=== PATIENT | female | born 1940 | race African-American/Black ===

== ENCOUNTER 2018-11-27 17:18 | Inpatient (IN) | payer MEDICARE, OTHER ==
[~2018-11-27] VITALS: Ht 165.1 cm; Wt 73.5 kg
[2018-11-27] MEDS ORDERED: SODIUM CHLORIDE 0.9% 1,000 ML IV ONE (17:51)
[2018-11-27 18:26] LABS: BASOPHILS % 0.6 % (0.0-2.0); EOSINOPHILS % 0.5 % (0.0-5.0); HEMATOCRIT. 38.1 % (36.0-48.0); HEMOGLOBIN. 12.8 g/dL (12.0-16.0); LYMPHOCYTES % 20.5 % (20.0-50.0); MEAN CORPUSCULAR HEMOGLOBIN 31.6 pg (28.0-32.0); MEAN CORPUSCULAR VOLUME 93.9 fL (81.0-99.0); MEAN PLATELET VOLUME 9.6 fl (7.4-10.4); NEUTROPHILS % 71.4 % (40.0-76.0); PLATELET 198 x1000/uL (130-400); RED BLOOD CELL COUNT 4.05 mill/uL (4.2-5.4); RED CELL DISTRIBUTION WIDTH 16.4 % (11.6-14.6)
[2018-11-27 18:31] LABS: CHLORIDE 102 mEq/L (98-107)
[2018-11-27] MEDS: POTASSIUM CHLORIDE 20MEQ TABLET SR PO NR ×2 (19:38→19:39)
[2018-11-27 23:30] VITALS: BP 171/97
[2018-11-28] VITALS: BP 171/97
[2018-11-28] MEDS ORDERED: HYDRALAZINE 20MG/ML VIAL IV PRN (00:15)
[2018-11-28] MEDS ORDERED: IPRATROPIUM/ALBUTEROL 0.5-3(2.5)MG/3ML NEB HHN PRN (00:15)
[2018-11-28] MEDS ORDERED: EZET10TA13 MT (00:18)
[2018-11-28] MEDS ORDERED: LEVO25TA7 MT (00:18)
[2018-11-28] MEDS ORDERED: HYDR25TA MT (00:18)
[2018-11-28] MEDS ORDERED: KDUR10 MT (00:18)
[2018-11-28] MEDS: AMLODIPINE 5MG TABLET PO SCH ×2 (01:04→09:05)
[2018-11-28 04:00] VITALS: BP 113/68
[2018-11-28] MEDS ORDERED: LEVOTHYROXINE SODIUM 25MCG TABLET PO SCH (06:45)
[2018-11-28 06:58] LABS: BASOPHILS % 0.6 % (0.0-2.0); EOSINOPHILS % 0.5 % (0.0-5.0); HEMATOCRIT. 35.7 % (36.0-48.0); HEMOGLOBIN. 12.3 g/dL (12.0-16.0); LYMPHOCYTES % 32.7 % (20.0-50.0); MEAN CORPUSCULAR HEMOGLOBIN 31.9 pg (28.0-32.0); MEAN CORPUSCULAR VOLUME 92.5 fL (81.0-99.0); MEAN PLATELET VOLUME 9.8 fl (7.4-10.4); MONOCYTES % 9.9 % (2.0-8.0); NEUTROPHILS % 56.3 % (40.0-76.0); PLATELET 203 x1000/uL (130-400); RED BLOOD CELL COUNT 3.86 mill/uL (4.2-5.4); RED CELL DISTRIBUTION WIDTH 16.3 % (11.6-14.6)
[2018-11-28 07:14] LABS: CHLORIDE 107 mEq/L (98-107)
[2018-11-28 07:31] LABS: LDL CHOLESTEROL 107 mg/dL (5-100)
[2018-11-28 07:32] LABS: HDL CHOLESTEROL 66 mg/dL (40-59)
[2018-11-28 08:00] VITALS: BP 146/86
[2018-11-28] MEDS ORDERED: POTASSIUM CHLORIDE 10MEQ TABLET SR PO SCH (09:00)
[2018-11-28] MEDS ORDERED: ENOXAPARIN 40MG/0.4ML SYR SUBCUT SCH (09:00)
[2018-11-28] MEDS ORDERED: ASPIRIN 81MG TABLET PO SCH (09:00)
[2018-11-28] MEDS ORDERED: EZETIMIBE 10MG TABLET PO SCH (09:00)
[2018-11-28 12:00] VITALS: BP 152/86
[2018-11-28] MEDS ORDERED: POTASSIUM CHLORIDE 20MEQ TABLET SR PO NR (12:15)
[2018-11-28] MEDS ORDERED: AMLODIPINE 5MG TABLET PO SCH (12:45)
[2018-11-28] MEDS ORDERED: SODIUM CHLORIDE 0.45% 1,000 ML IV SCH (14:00)
[2018-11-28 14:13] LABS: T4 FREE 0.82 ng/dL (0.76-1.46)
[2018-11-28 16:00] VITALS: BP_SYST 155; BP_SYST 164; BP_SYST 173; BP_DIAS 101; BP_DIAS 93; BP_DIAS 95
[2018-11-28 16:42] LABS: PROTHROMBIN TIME 10.3 sec (9.6-11.0)
[2018-11-28 18:22] LABS: CLARITY URINE CLEAR (CLEAR); COLOR URINE YELLOW (YELLOW); KETONES URINE NEGATIVE (NEGATIVE); LEUKOCYTE ESTERASE URINE NEGATIVE (NEGATIVE); NITRITE URINE NEGATIVE (NEGATIVE); OCCULT BLOOD URINE NEGATIVE (NEGATIVE); PH URINE 7.5 (4.5-8.0); PROTEIN URINE NEGATIVE (NEGATIVE); SPECIFIC GRAVITY URINE 1.004 (1.005-1.030); UROBILINOGEN URINE 0.2 E.U./dL (0.2-1.0)
[2018-11-28 19:02] LABS: *AMPHETAMINES SCREEN URINE NEGATIVE (NEGATIVE); *BARBITURATES SCREEN URINE NEGATIVE (NEGATIVE); *BENZODIAZEPINES SCREEN URINE NEGATIVE (NEGATIVE); *COCAINE SCREEN URINE NEGATIVE (NEGATIVE); METHADONE URINE SCREEN NEGATIVE (NEGATIVE); OPIATES URINE SCREEN NEGATIVE (NEGATIVE)
[2018-11-28 19:03] LABS: CANNABINOID URINE SCREEN NEGATIVE (NEGATIVE); PHENCYCLIDINE URINE SCREEN NEGATIVE (NEGATIVE)
== END 2018-11-28 17:05 | disposition left against medical advice (07) | DRG 74 ==
LOC: ER 17:18 → 5WST 19:48 → EDBEDREQTM 19:59 → EDBEDREQ 19:59 → ENRESERV 22:04
PROVIDERS: ADMIT Internal Medicine; ATTEND Internal Medicine
DX: G90.8 Other disorders of autonomic nervous system (principal); E78.00 Pure hypercholesterolemia, unspecified; E78.5 Hyperlipidemia, unspecified; E05.90 Thyrotoxicosis, unspecified without thyrotoxic crisis or storm; E03.9 Hypothyroidism, unspecified; Z53.21 Procedure and treatment not carried out due to patient leaving prior to being seen by health care provider; E86.0 Dehydration; E87.6 Hypokalemia; I10 Essential (primary) hypertension; Z79.82 Long term (current) use of aspirin
CPT/HCPCS: 36415; 71045; 80061; 80305; 81003; 83036; 84439; 84443; 84481; 84484; 93005; 93306; 96360; 96372; 99285; J1650; J7030